=== PATIENT | male | born 1970 | race American Indian/Alaskan Native ===

== ENCOUNTER 2016-03-16 12:27 | Emergency (ER) | payer OTHER ==
[2016-03-16 12:36] VITALS: BP 118/75
--- NOTE | 2016-03-16 14:04 | Emergency Department Report ---
Upper Extremity - HPI Chief Complaint: Extremity Injury, Upper Stated Complaint: LT SHOULDER INJURY Time Seen by Provider: 03/16/16 13:57 Upper Extremity: Left Shoulder Occurred When: 2 Days Mechanism: Other (lifting) Severity: moderate Symptoms: Yes Pain with Movement, Yes Deformity, Yes Limited Range of Movement, No Numbness, No Weakness, No Swelling, No Bruising/Ecchymosis, No Laceration or Abrasion Other History: Patient presents c/o dislocated left shoulder confirmed on xray 2 days ago at [facility]. States he was lifting heavy boxes when he heard L shoulder pop. Reports pain with movement. States sholder was reduced 2 days ago at [facility], but told it redislocated on his f/u visit yesterday. He was instructed to come to ED as no ortho specialist could see him immediately. Denies weakness , tingling, numbness. States he has rx for pain med and muscle relaxant. ED Review of Systems ROS: Stated complaint: LT SHOULDER INJURY Other details as noted in HPI Comment: All other systems reviewed and negative ED Past Medical Hx - Past Medical History Previous Medical History?: No - Surgical History Past Surgical History?: No - Social History Smoking Status: Never Smoker Substance Use Type: None - Medications Home Medications: Home Medications Medication Instructions Recorded Confirmed Last Taken Type No Known Home Medications [No 03/16/16 03/16/16 Unknown History Reported Home Medications] Upper Extremity Exam - Exam General: Vital signs noted. No distress. Alert and acting appropriately. Head and Torso: No HEENT Abnormality, No Neck Tenderness, No Chest/Lungs Abnormality, No Abdominal Tenderness, No Back Tenderness Shoulder Exam: Yes Shoulder Tenderness, Yes AC Joint Tenderness, No Clavicle Tenderness, No Normal Range of Motion in Shoulder, No Shoulder Deformity (No step-off sign) Elbow: Yes Normal Range of Motion in Elbow, No Elbow Tenderness, No Elbow Deformity Forearm: No Forearm Tenderness, No Forearm Deformity, No Pain with Pronation, No Pain with Supination Wrist: Yes Normal ROM in Wrist, No Wrist Tenderness, No Wrist Deformity, No Snuffbox Tenderness, No Pain with Axial Thumb Compression Hand: Yes Normal ROM in Digit(s), No Hand Tenderness, No Hand Deformity, No Digit Tenderness, No Digit(s) Deformity, No Tendon Dysfunction CMS Exam: Yes Normal Distal Pulses, Yes Normal Capillary Refill, Yes Normal Distal Sensation, No Broken Skin ED Course Vital Signs 03/16/16 12:33 Temperature 98.3 F Pulse Rate 56 L Respiratory 16 Rate Blood Pressure 118/75 O2 Sat by Pulse 100 Oximetry ED Medical Decision Making - Radiology Data Radiology results: report reviewed Posterior dislocation w/o acute fx, per radiology report (see full report for details). - Medical Decision Making 45 YOM with left shoulder pain with posterior dislocation on radiology report. However, xray was taken with shoulder in sling and immobilized tightly in adduction. Also there is no obvious PE indication of dislocation as evaluated with sling off. Patient will be put in sling and referred to ortho for follow up. He has pain meds and muscle relaxant rx 2 days ago for same complaint. He refused pain meds during his time her at ED today. He verbalized understanding and is agreeable to plan. Dr. Lopze saw this patient and evaluated L shoulder. He is agreeable to plan. - Differential Diagnosis sprain, strain Critical care attestation.: If time is entered above; I have spent that time in minutes in the direct care of this critically ill patient, excluding procedure time. ED Disposition Clinical Impression: Left shoulder pain Qualifiers: Chronicity: acute Qualified Code(s): M25.512 - Pain in left shoulder Disposition: DISCHARGED TO HOME OR SELFCARE Is pt being admited?: No Does the pt Need Aspirin: No Condition: Stable Instructions: Shoulder Sprain (ED) Additional Instructions: Follow instructions for care. Continue pain meds and muscle relaxant as previously prescribed. Follow up with obgyn specialist for follow up. Return to ED for new or worsening condition. Referrals: JAIME FERNANDEZ MD [Staff Physician] - 3-5 Days PRIMARY CAREMD [Primary Care Provider] - 3-5 Days
--- NOTE | 2016-03-16 14:44 | XRay Report ---
Left shoulder 3 views: History: Left shoulder pain rule out dislocation. Findings: The shoulder appears to be fixed in internal rotation. There is suspected posterior subluxation/dislocation. No fracture. Impression: Findings as described. Clinical correlation advised.
== END 2016-03-16 17:06 | disposition home or self-care (01) ==
LOC: ED 12:27
DX: M25.512 Pain in left shoulder (principal)